=== PATIENT | male | born 1970 | race Caucasian/White ===

== ENCOUNTER 2017-02-14 14:59 | Emergency (ER) | payer OTHER ==
[2017-02-14 15:11] VITALS: BP 131/79; PULSE 66; TEMP 97.7; BMI 28.7
--- NOTE | 2017-02-14 16:21 | PDOC ---
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 Patient reports that the floor was being sanded by a contracted company that created dust in the room with dark particles that he was exposed while on duty various amounts of times. He reports at times having a dry cough with nasal congestion with no shortness of breath or wheezing. He denies any exacerbations of his asthma. Patient denies having any cough, any shortness of breath or any nasal discharge, burning of eyes or any turning denies or any skin rashes. Pt. today a cleaning company came to clean the room including the floor and reported that they thought asbestos was in the dustlike material on the floor and would not clean. The dustlike material has not been confirmed by a laboratory to contain asbestos. He reports at times he wore a mask. Pt. is a none smoker. 02/14/17 16:51 Timing: other (from end of 07/14- 12/15) Severity: mild Exposed Location: Bilateral: Nose/Nare, Mouth, Other exposed area(s) (breathing in of cloudy air intermittently) <Mireya Brothers - Last Filed: 02/14/17 16:51> - General History Source: Patient <Tara Hill - Last Filed: 02/14/17 19:02> - General Chief Complaint: Non EmpBld/Body Flud Exposure Stated Complaint: ASBESTOS EXPOSURE Time Seen by Provider: 02/14/17 15:20 Past History - Past Medical History General: Yes: asthma <Mireya Brothers - Last Filed: 02/14/17 16:51> - Past Medical History Surgical History: Yes: No Surgical History - Social History Smoking History: No Smoking Status: Never smoked Number of Ciarettes Per Day: 0 Alcohol Use: none Drug Use: none <Tara Hill - Last Filed: 02/14/17 19:02> - Past Medical History Allergies/Adverse Reactions: Allergies No Known Allergies Allergy (Verified 02/14/17 15:11) Home Medications: Ambulatory Orders No Home Medications 0 dose .ROUTE UTDICT 05/29/13 Review of Systems - Review of Systems Able to Perform ROS?: Yes Constitutional: No: Symptoms Reported HEENTM: Yes: Nose Congestion (intermittently , none now ) Respiratory: Yes: Cough, Other (no cough or sob, or wheezing presently ). No: Wheezing, Productive cough Cardiac (ROS): No: Symptoms Reported ABD/GI: No: Symptoms Reported : No: Symptoms Reported Musculoskeletal: No: Symptoms Reported Integumentary: No: Symptoms Reported Neurological: No: Symptoms reported <Mireya Brothers - Last Filed: 02/14/17 16:51> *Physical Exam - Vital Signs Last Vital Signs Temp Pulse Resp BP Pulse Ox 97.7 F 66 18 131/79 99 02/14/17 15:08 02/14/17 15:08 02/14/17 15:08 02/14/17 15:08 02/14/17 15:08 - Physical Exam General Appearance: Yes: Appropriately Dressed HEENT: positive: Normal ENT Inspection Neck: negative: Lymphadenopathy (R), Lymphadenopathy (L) Respiratory/Chest: positive: Lungs Clear, Normal Breath Sounds. 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 Patient reports that the floor was being sanded by a contracted company that created dust in the room with dark particles that he was exposed while on duty various amounts of times. He reports at times having a dry cough with nasal congestion with no shortness of breath or wheezing. He denies any exacerbations of his asthma. Patient denies having any cough, any shortness of breath or any nasal discharge, burning of eyes or any turning denies or any skin rashes. Pt. today a cleaning company came to clean the room including the floor and reported that they thought asbestos was in the dustlike material on the floor and would not clean. The dustlike material has not been confirmed by a laboratory to contain asbestos. He reports at times he wore a mask. Pt. is a none smoker. SUSPECTED EXPOSURE TO ASBESTOS PLAN: FOLLOW UP WITH OCCUPATIONAL HEALTH RETURN TO ER IF ANY DIFFICULTY BREATHING <Mireya Brothers - Last Filed: 02/14/17 16:51> *DC/Admit/Observation/Transfer <Mireya Brothers - Last Filed: 02/14/17 16:51> <Tara Hill - Last Filed: 02/14/17 19:02> Diagnosis at time of Disposition: Suspected exposure to asbestos - Discharge Dispostion Disposition: HOME Condition at time of disposition: Stable - Referrals Referrals: STAFF,NOT ON [Primary Care Provider] - - Patient Instructions Additional Instructions: Follow-up with occupational health as soon as possible for further evaluation Return to emergency room if any difficulty breathing or any symptoms develop Patient voiced understanding of discharge instructions and all questions were answered - Post Discharge Activity Work/School Note: Back to Work
== END 2017-02-14 16:32 | disposition home or self-care (01) ==
LOC: SUPCPDRO 14:59 → JERFT 14:59
DX: Z77.090 Contact with and (suspected) exposure to asbestos (principal); X58.XXXA Exposure to other specified factors, initial encounter; Y93.89 Activity, other specified; Y92.89 Other specified places as the place of occurrence of the external cause; Y99.0 Civilian activity done for income or pay
CPT/HCPCS: 99281-25